=== PATIENT | male | born 1970 | race African-American/Black ===

== ENCOUNTER → 2021-10-25 16:30 | Outpatient (CLI) | payer OTHER, SELFPAY ==
[2021-10-25 16:51] LABS: Add Manual Diff / Slide Review NO; Basophils Absolute Auto 0 /uL (0-100); Basophils Percent Auto 1.2 % (0-2); Eosinophils Absolute Auto 100 /uL (0-450); Eosinophils Percent Auto 3.1 % (2-4); Hematocrit 43.5 % (41-53); Hemoglobin 15.4 g/dL (13.5-17.5); Lymphocytes Absolute Auto 1800 /uL (1100-4500); Lymphocytes Percent Auto 50.2 % (25-40); Mean Corpuscular HGB Conc 35.5 % (30-36); Mean Corpuscular Hemoglobin 32.3 PG (26-34); Mean Corpuscular Volume 91.2 fL (80-100); Monocytes Absolute Auto 300 /uL (0-900); Neutrophils Absolute Auto 1300 /uL (1500-7000); Neutrophils Percent Auto 36.5 % (50-75); Platelet Count 262 X10^3/uL (150-400); Red Blood Cell Count 4.77 X10^6/uL (4.5-5.9); White Blood Cell Count 3.5 X10^3/uL (4.5-11.0)
[2021-10-25 17:25] LABS: Alanine Aminotransferase 48 IU/L (<50); Albumin Globulin Ratio 1.4 (1.0-2.8); Alkaline Phosphatase 40 U/L (38-126); Aspartate Aminotransferase 44 IU/L (17-59); BUN Creatinine Ratio 11.8 (6-22); Bilirubin Total 0.9 mg/dL (0.2-1.3); Blood Urea Nitrogen 12 mg/dL (9-20); Calcium 9.4 mg/dL (8.4-10.2); Carbon Dioxide 30 mmol/L (22-32); Chloride 100 mmol/L (98-107); Cholesterol 189 mg/dL (140-199); Estimated Glomerular Filt Rate > 60.0 mL/min (>60); Globulin 3.5 g/dL (1.7-4.1); Glucose 87 mg/dL (70-100); HDL Cholesterol 41 mg/dL (40-60); HEMOLYSIS 17 (0-50); LDL Cholesterol Calculated 132 mg/dL (<100); Sodium 137 mmol/L (137-145); Total Protein 8.5 g/dL (6.3-8.2); Triglycerides 78 mg/dL (35-150)
[2021-10-25 17:51] LABS: TSH w/ Reflex to FT4 2.45 uIU/mL (0.47-4.68)
[2021-10-25 17:54] LABS: Prostate Specific Antigen Scrn 1.96 ng/mL (0.1-4.0)
== END ==
PROVIDERS: PCP Family Medicine; Referring Provider Family Medicine; Visit Provider Family Medicine
DX: H46.9 Unspecified optic neuritis (principal); M72.2 Plantar fascial fibromatosis; M77.30 Calcaneal spur, unspecified foot; Z12.11 Encounter for screening for malignant neoplasm of colon; Z12.5 Encounter for screening for malignant neoplasm of prostate; Z13.220 Encounter for screening for lipoid disorders
CPT/HCPCS: 36415; 80053; 80061; 84443; 85025; G0103

== ENCOUNTER → 2022-10-21 09:14 | Outpatient (CLI) | payer OTHER, SELFPAY ==
[2022-10-21 10:33] LABS: Hematocrit 43.9 % (41-53); Hemoglobin 15.4 g/dL (13.5-17.5); Mean Corpuscular Hemoglobin 31.9 PG (26-34); Mean Corpuscular Volume 91.1 fL (80-100); Platelet Count 300 X10^3/uL (150-400); Red Blood Cell Count 4.82 X10^6/uL (4.5-5.9); Red Cell Distribution Width 12.9 % (11.6-14.8); White Blood Cell Count 4.2 X10^3/uL (4.5-11.0)
[2022-10-21 11:12] LABS: HEMOLYSIS < 15 (0-50)
[2022-10-21 11:17] LABS: Alanine Aminotransferase 42 IU/L (<50); Albumin 4.6 g/dL (3.5-5.0); Albumin Globulin Ratio 1.4 (1.0-2.8); Alkaline Phosphatase 52 U/L (38-126); Aspartate Aminotransferase 44 IU/L (17-59); BUN Creatinine Ratio 11.2 (6-22); Bilirubin Total 0.6 mg/dL (0.2-1.3); Blood Urea Nitrogen 15 mg/dL (9-20); Calcium 9.3 mg/dL (8.4-10.2); Carbon Dioxide 27 mmol/L (22-32); Chloride 103 mmol/L (98-107); Cholesterol 162 mg/dL (140-199); Estimated Glomerular Filt Rate > 60 mL/min (>60); Globulin 3.3 g/dL (1.7-4.1); Glucose 92 mg/dL (70-100); HDL Cholesterol 38 mg/dL (40-60); LDL Cholesterol Calculated 115 mg/dL (<100); Potassium 4.2 mmol/L (3.4-5.1); Sodium 138 mmol/L (137-145); Total Protein 7.9 g/dL (6.3-8.2); Triglycerides 44 mg/dL (35-150)
[2022-10-21 11:49] LABS: TSH w/ Reflex to FT4 1.52 uIU/mL (0.47-4.68)
[2022-10-21 11:50] LABS: Prostate Specific Antigen 2.28 ng/mL (0.10-4.00)
== END ==
PROVIDERS: PCP Family Medicine; Referring Provider Registered Nurse Diabetes Educator; Visit Provider Registered Nurse Diabetes Educator
DX: E78.5 Hyperlipidemia, unspecified (principal); Z80.42 Family history of malignant neoplasm of prostate
CPT/HCPCS: 36415; 80053; 80061; 84153; 84443; 85027

== ENCOUNTER → 2022-11-29 11:06 | Outpatient (CLI) | payer OTHER, SELFPAY ==
--- NOTE | 2022-11-29 11:09 | DI.MRI.S_ITS ---
PROCEDURE: MR LUMBAR SPINE WO CON INDICATIONS: Chronic progressive LBP TECHNIQUE: Noncontrast sagittal T1 spin echo and T2 fast echo, sagittal STIR, and T2 fast spin echo through the lumbar spine. In cases with scoliosis, additional coronal T2 fast spin echo may be performed. COMPARISON: [facility] Outside Film, CR, XR LUMBAR SPINE 2 OR 3 VIEWS, 11/03/2020, 10:38. FINDINGS: Image quality: Excellent. Alignment and Curvature: 5 lumbar type vertebral bodies are present by plain film. 4 mm of retrolisthesis of L5 on S1. Bone Marrow: Marrow is of normal overall signal. No acute vertebral body compression fractures. Mild reactive signal within the endplates adjacent to the L5-S1 intervertebral disc. He and Spinal Cord: Conus medullaris terminates at the lower L1 a level. Visualized cord demonstrates normal signal and size. Paraspinous Soft Tissues: No paravertebral masses. T12-L1: Normal appearance. L1-L2: Normal appearance. L2-L3: Normal appearance. L3-L4: Mild disc desiccation and diffuse disc bulge. Mild facet and ligamentum flavum hypertrophy. Mild epidural lipomatosis. Mild canal stenosis. Moderate bilateral foraminal stenosis. L4-L5: Mild facet hypertrophy. No significant canal stenosis. Moderate bilateral foraminal stenosis. L5-S1: Moderate disc height loss and desiccation. Mild diffuse disc bulge. Mild bilateral facet hypertrophy. No significant canal stenosis. Moderate subarticular foraminal stenosis. IMPRESSION: 1. Multilevel degenerative disc and facet disease, as well as ligamentum flavum hypertrophy and epidural lipomatosis. 2. Mild multilevel canal stenoses. 3. Multilevel foraminal stenoses, worst at L3-L4, L4-L5, and L5-S1 where there is associated moderate foraminal stenosis. Dictated by: Marcella Love M.D. on 11/29/2022 at 12:19 Approved by: Marcella Love M.D. on 11/29/2022 at 12:22
== END ==
PROVIDERS: PCP Family Medicine; Referring Provider Physical Medicine & Rehabilitation; Visit Provider Physical Medicine & Rehabilitation
DX: M51.37 Other intervertebral disc degeneration, lumbosacral region (principal); M47.816 Spondylosis without myelopathy or radiculopathy, lumbar region; M48.061 Spinal stenosis, lumbar region without neurogenic claudication; M48.07 Spinal stenosis, lumbosacral region
CPT/HCPCS: 72148

== ENCOUNTER 2022-12-06 10:58 | Day surgery (SDC) | payer OTHER, SELFPAY ==
--- NOTE | 2022-12-06 | PATH_ITS ---
[facility] Accession Number: [id number] No. of containers..01 Tissue . 01 Material submitted: . colon - ASCENDING COLON POLYP . 01 Diagnosis: Ascending Colon Polyp, Biopsy: Colonic mucosa with no neoplasm identified, consistent with polypoid redundancy. MRV 12/10/2022 1320 Local . 01 Electronically signed: . Sallie Zapata MD, Pathologist NPI- [id number] . 01 Gross description: . ASCENDING COLON POLYP: Received in formalin is 1 fragment(s) of greco, soft tissue measuring 0.2 x 0.2 x 0.1 cm submitted entirely in 1 cassette(s) /CPE 12/07/2022 0916 Local . 01 Pathologist provided ICD-10: Z12.11 . 01 CPT . 311079 Specimen Comment: A courtesy copy of this report has been sent to [facility] Pathology Performed at: 01 [facility] [address] [place] [address], [place], [place] [id number] MD Geraldo Major MD Phone: [phone]
[2022-12-06 11:38] VITALS: BP 122/80; PULSE 68; RESP 21; TEMP 36.3; O2SAT 99; BMI 33.7
[2022-12-06] MEDS: LACTATED RINGERS 1,000 ML 42 ML IV (11:50)
--- NOTE | 2022-12-06 14:19 | PM.HP.1 ---
History of Present Illness History of Present Illness Date Patient Seen: 12/06/22 Time Patient Seen: 14:19 Chief complaint: Screening Colonoscopy Narrative: Mr. Antoine presents today for screening colonoscopies never had a colonoscope before. He has no family history of colon cancer and no concerning symptoms. He has no other questions [facility] Medical History Anxiety Bilateral plantar fasciitis Degenerative disc disease at L5-S1 level Dyslipidemia Facet arthropathy, lumbar Heel spur Optic neuritis Posttraumatic stress disorder Social History household members: spouse Smoking Status: Never smoker Meds Home Medications and Allergies Home Medications Medication Instructions Recorded Confirmed Type Parking Permit... #1 ea 10/25/21 10/23/22 Rx celecoxib 200 mg capsule (Celebrex) 200 mg PO DAILY #30 caps 10/17/22 12/06/22 Rx gabapentin 300 mg capsule 300 mg PO BID PRN pain (scale 10/17/22 12/06/22 History score 4-6) sodium sul 1.479 gram-potas ch See Rx Instructions PO PER PKG DIR 10/18/22 12/06/22 Rx 0.188 gram-magnes sul 0.225 gram #24 tabs tablet (Sutab) Allergies Allergy/AdvReac Type Severity Reaction Status Date / Time No Known Drug Allergies Allergy Unverified 10/23/22 11:30 Exam Vital Signs (past 8 hours): - 12/06/22 11:38 Temperature 97.4 F L Pulse Rate 68 Respiratory Rate 21 Blood Pressure 122/80 Pulse Oximetry 99 Oxygen Delivery Method Room Air Oxygen Delivery Method Room Air Const General: cooperative, healthy appearing and comfortable Nutritional Appearance: well nourished (Strong, healthy) Eyes General: appearance normal, both eyes and all related structures Resp Effort & Inspection: normal respiratory effort and able to speak in complete sentences GI Palpation: soft and No tender Extrem General: normal to inspection Assessment & Plan Assessment and plan (1) Colon cancer screening: Status: Acute Assessment & Plan narrative: Presents today for screening colonoscopy I discussed the risks benefits and alternatives including but not limited to perforation of the colon and an incomplete exam he fully understands these risks and would like to proceed.
[2022-12-06 15:14] VITALS: BP 100/64; PULSE 75; RESP 16; TEMP 36.5; O2SAT 96
[2022-12-06 15:16] VITALS: BP 97/59; PULSE 69; RESP 10; O2SAT 96
[2022-12-06 15:21] VITALS: BP 100/62; PULSE 63; RESP 11; O2SAT 96
--- NOTE | 2022-12-06 15:23 | PM.OP.COLON ---
Operative Date/Time/Diagnoses Date of procedure: 12/06/22 Time of procedure: 15:23 Pre-op diagnosis: Colon cancer screening Post-op diagnosis: same Procedure & Clinicians Study performed: colonoscopy and biopsy Same procedure as scheduled: Yes Indications: screening Surgeon: Angeline Sosa Procedure Notes Procedure in detail: Patient was taken to the endoscopy suite and placed in a left lateral decubitus position. A time-out was performed anesthesiologist induced and maintained conscious sedation throughout the case. Digital rectal exam was performed some small external hemorrhoids were noted and there were no masses or strictures. The colonoscope was introduced into the anal canal and advanced through to the cecum. A photograph was obtained of the appendiceal orifice. The bowel prep was excellent [place] bowel prep score of 3. The scope was withdrawn for 15 minutes. One small ascending colon polyp was seen and removed with the biopsy forceps. Additionally there were few scattered diverticula in the sigmoid colon. Photographs were obtained. The scope was retroflexed and the internal hemorrhoid piles were unremarkable photograph was obtained. The patient tolerated the procedure well and went in good condition the postoperative care unit Post-procedure Plan for aftercare: 7-10 year follow-up depending on pathology of the 1 polyp seen.
[2022-12-06 15:26] VITALS: BP 120/74; PULSE 72; RESP 14; TEMP 36.4; O2SAT 98
[2022-12-06 15:29] VITALS: BP 121/65; PULSE 60; RESP 12; TEMP 36.3; O2SAT 96
== END 2022-12-06 15:55 | disposition home or self-care (01) ==
PROVIDERS: PCP Family Medicine; Referring Provider Surgery; Visit Provider Surgery
PROC: 0DJD8ZZ Inspection of Lower Intestinal Tract, Via Natural or Artificial Opening Endoscopic (ICD-10-PCS; CPT 45378; principal; 2022-12-06 12:15)
DX: Z12.11 Encounter for screening for malignant neoplasm of colon (principal); K57.30 Diverticulosis of large intestine without perforation or abscess without bleeding; K64.4 Residual hemorrhoidal skin tags; K63.5 Polyp of colon
CPT/HCPCS: 45380; J2704; J3010

== ENCOUNTER 2023-01-14 07:53 | Outpatient (CLI) | payer OTHER, SELFPAY ==
[2023-01-14] VITALS (9 sets, daily range): BP systolic 112–144; BP diastolic 54–93; PULSE 55–70; RESP 12–19; TEMP 36.4; O2SAT 2–100
--- NOTE | 2023-01-14 07:54 | DI.RAD.S_ITS ---
PROCEDURE: PAIN L INTERLAMINAR/CAUDAL INJ INDICATIONS: SPONDYLOSIS COMPARISON: None. FINDINGS: Fluoroscopic spot filming was performed to verify placement of spinal needles at the L5-S1 level(s), as labeled on the films. Appropriate location(s) of the needle tip(s) was confirmed by injection of iodinated contrast. IMPRESSION: Fluoro guidance was provided intraoperatively for L5-S1 translaminar epidural steroid injection performed by the ordering physician. Dictated by: Héctor Herrera M.D. on 01/14/2023 at 10:49 Approved by: Héctor Herrera M.D. on 01/14/2023 at 10:52
[2023-01-14] MEDS: MIDAZOLAM 2 MG/2 ML VIAL IV (09:07)
[2023-01-14] MEDS: IOPAMIDOL 15 ML VIAL 3 ML INJ (09:11)
[2023-01-14] MEDS: DEXAMETHASONE 10 MG/ML VIAL 20 MG INJ (09:11)
[2023-01-14] MEDS: BUPIVACAINE 0.25% (PF) VIAL 2 ML INJ (09:11)
[2023-01-14] MEDS: methylPREDNISolone acetate 80 MG/ML VIAL INJ (09:12)
--- NOTE | 2023-01-14 09:26 | P.PCN_ITS ---
Date/Time/Diagnoses Date of procedure: 01/14/23 Time of procedure: 09:26 Pre-procedure diagnosis: 1. HNP WITH RADICULAR FEATURES, 2. MULTILEVEL CENTRAL STENOSIS, Post-procedure diagnosis: same Procedure Notes Procedure: 1. FLUOROSCOPICALLY GUIDED CONTRAST CONTROLLED INTERLAMINAR EPIDURAL STEROID INJECTION - L5/S1 Indications: Power is referred by Dr. Burr for treatment of Bilateral Foraminal Stenosis L>R LE symptoms. Physician: Roderick Michelle Total Fluoroscopy time (seconds): 7 Total sedation minutes: 10 Complications: none Procedure in detail & Post-procedure care: FINDINGS Multilevel Central Spinal Stenosis with Nerve Root Compression DESCRIPTION OF PROCEDURE Fluoroscopically guided, contrast-controlled L5/S1 translaminar epidural steroid injection. Following review of allergy and review of potential side effects and complications, including, but not necessarily limited to, infection, allergic reaction, local tissue breakdown, temporary as well as permanent nerve injury, paralysis, stroke and possible , the patient indicated that the patient understood and agreed to proceed. An informed consent document was signed by the patient, witnessed by a nurse, and placed in the patient's chart. Additionally, other treatment options including modalities, medications, and physical therapy were reviewed with the patient. After review of previous anaesthesic history and IV conscious sedation the patient was deemed safe to proceed with today?s procedure with IV conscious sedation as ASA class II designation. Safety time-out was performed to confirm p atient ID, procedure to be performed and site of procedure. IV sedation was accomplished with a combination of 2mg of Versed administered by the RN after DO order, titrated to patient comfort during the course of the procedure while the patient remained responsive to all verbal commands. In the prone position, following sterile prep and drape of the lumbar region, the L5/S1 translaminar space was identified fluoroscopically. The skin was anesthetized via a 25-gauge, 1.5-inch needle with 1% lidocaine solution. At this point, a 22-gauge short bevel spinal needle was atraumatically introduced and advanced under fluoroscopic guidance into the region of the L5/S1 translaminar space. Depth was confirmed on lateral view. Radiological data, including multiple fluoroscopic views of the lumbar spine, reveal a spinal needle at the L5/S1 translaminar space. Lateral views then show placement of the needle in the epidural space. Subsequent views show contrast material flowing superiorly and inferiorly in the epidural space. No vascular or intrathecal uptake is observed. At this point, using loss of resistance technique with saline and air, the epidural space was entered. This was confirmed following negative aspiration with injection of approximately 1.5cc of Isovue 200, showing excellent epidural flow without vascular or intrathecal uptake. At this point, 1 cc of 1% lidocaine solution combined with 3cc or 20mg of dexamethasone and 6mg of betamethasone was injected without incident. The patent tolerated the procedure without signs of symptoms of complications prior to transfer to the recovery area for further monitoring. The patient was then transferred to the recovery area where they were observed for an appropriate period of time after the injection. The patient reported a VAS score of 10 prior to the procedure and a post-procedure VAS of 1. POST OP INSTRUCTIONS The patient was provided a Pain Log to continue to record their response to the target-specific procedure prior to follow-up visit with their referring physician. Additionally, specific post-injection care instructions and a contact number to our office were provided if concerns arise regarding possible complications associated with the procedure are suspected.
--- NOTE | 2023-01-14 10:12 | PC.NURSE ---
0954 patient stood at chair was able to take a few steps in place, states leg feels pretty good, pain is better when standing, states its more triggered when sitting. 1006- patient stood and took steps without difficulty, reports he feels safe to d/c home. Educated on being mindful of left leg for the next 24 hours and to be careful when walking. Patient aware and agrees. Dr Michelle saw patient prior to d/c.
== END 2023-01-14 10:10 | disposition home or self-care (01) ==
LOC: RAD 07:54
PROVIDERS: PCP Family Medicine; Referring Provider Physical Medicine & Rehabilitation; Visit Provider Physical Medicine & Rehabilitation
DX: M51.37 Other intervertebral disc degeneration, lumbosacral region (principal); M48.07 Spinal stenosis, lumbosacral region; M54.17 Radiculopathy, lumbosacral region
CPT/HCPCS: 62323; 99152; J1040; J1100; J2250; J3490

== ENCOUNTER 2023-04-15 10:18 | Outpatient (CLI) | payer OTHER, SELFPAY ==
[2023-04-15] VITALS (10 sets, daily range): BP systolic 112–127; BP diastolic 55–83; PULSE 62–76; RESP 15–20; TEMP 36.6; O2SAT 99–100
--- NOTE | 2023-04-15 10:19 | DI.RAD.S_ITS ---
PROCEDURE: PAIN L/S FACET INJ/BLK 1ST JOHNSON COMPARISON: [facility], XA, PAIN L INTERLAMINAR/CAUDAL INJ, 01/14/2023, 9:11. INDICATIONS: SPONDYLOSIS FINDINGS: Fluoroscopic spot filming was performed to verify placement of spinal needles on both sides at the L4, L5, and S1 levels, as labeled on the films. IMPRESSION: Images during rhizotomy within normal limits. Dictated by: Luis Daniel Sullivan M.D. on 04/15/2023 at 12:23 Approved by: Luis Daniel Sullivan M.D. on 04/15/2023 at 12:24
[2023-04-15] MEDS: MIDAZOLAM 2 MG/2 ML VIAL 4 MG IV (11:21)
[2023-04-15] MEDS: IOPAMIDOL 15 ML VIAL 3 ML INJ (11:23)
[2023-04-15] MEDS: BUPIVACAINE 0.5% (PF) 10 ML VIAL 5 ML INJ (11:23)
[2023-04-15] MEDS: LIDOCAINE 1% 20 ML 5 ML INJ (11:23)
--- NOTE | 2023-04-15 11:42 | PM.PROC.IR.1 ---
Date/Time/Diagnoses Date of procedure: 04/15/23 Time of procedure: 11:42 Pre-procedure diagnosis: 1. FACET ARTHROPATHY Post-procedure diagnosis: same Procedure Notes Procedure: 1. BILATERAL- L4, L5 and S1 DIAGNOSTIC MB BLOCKS with LA Anesthetic Indications: Power is referred by Dr. Burr for treatment of Bilateral Axial LBP. Physician: Roderick Michelle Total Fluoroscopy time (seconds): 16 Total sedation minutes: 18 Complications: none Procedure in detail & Post-procedure care: DESCRIPTION OF PROCEDURE Fluoroscopically guided, contrast-controlled bilateral L4, L5 and S1 medial branch blocks with 0.5cc of 0.5% Marcaine. Following review of allergy and review of potential side effects and complications, including, but not necessarily limited to, infection, allergic reaction, local tissue breakdown, nerve injury, paralysis, stroke and possible , the patient indicated that the patient understood and agreed to proceed. An informed consent document was signed by the patient, witnessed by a nurse, and placed in the patient's chart. After review of previous anaesthesic history and IV conscious sedation the patient was deemed safe to proceed with today's procedure with IV conscious sedation as ASA class II designation. Safety time-out was performed to confirm patient ID, procedure to be performed and site of procedure. IV sedation was accomplished with a combination of 4mg of Versed was administered by the RN after DO order, titrated to patient comfort during the course of the procedure while the patient remained responsive to all verbal commands In the prone position, following sterile prep and drape of the lumbar region, the right L4, L5 and S1 anatomical location of the medial branch of the dorsal ramus was identified fluoroscopically. Subsequently an anesthetic skin wheal using 1% lidocaine solution was initiated at each of the anatomical spots. Subsequently then a 22-gauge 3.5-inch spinal needle was atraumatically introduced and advanced under fluoroscopic guidance at each of the corresponding sites at the right L4, L5 and S1 MB. After negative aspiration, 0.2cc of Isovue 200 was injected, confirming placement without vascular or intrathecal uptake. Subsequently then 0.5cc of 0.5% Marcaine solution was injected at each of the corresponding sites at the right L4, L5 and S1 medial branch locations. The identical procedure was replicated on the left. The patient tolerated the procedure well without signs or symptoms of complications prior to transfer to the recovery area continued monitoring without incident. Post-procedure, the patient was monitored initiating provocative activities to measure the amount of relief from block of the facetogenic pain. The patient reported a VAS of 7 prior to the procedure and a post-procedure VAS of 1. It has been a pleasure to assist in the diagnostic and therapeutic care of your patient. POST OP INSTRUCTIONS The patient was provided with a Pain Log to complete over the next several hours and subsequent days prior to the patient's follow up with the ordering physician. If the patient has production leader relief to the solution applied, then they may be a candidate for medial branch rhizotomy. The patient is aware, was provided, once again, with a Pain Log and will follow up with the referring physician for review and clinical correlation.
== END 2023-04-15 12:00 | disposition home or self-care (01) ==
LOC: RAD 10:18
PROVIDERS: PCP Family Medicine; Referring Provider Physical Medicine & Rehabilitation; Visit Provider Physical Medicine & Rehabilitation
DX: M47.816 Spondylosis without myelopathy or radiculopathy, lumbar region (principal); M47.817 Spondylosis without myelopathy or radiculopathy, lumbosacral region
CPT/HCPCS: 64493; 64494; 99152; J2250

== ENCOUNTER → 2024-02-06 09:50 | Outpatient (CLI) | payer OTHER, SELFPAY ==
[2024-02-06 11:36] LABS: Add Manual Diff / Slide Review NO; Basophils Absolute Auto 100 /uL (0-100); Basophils Percent Auto 1.4 % (0-2); Eosinophils Absolute Auto 100 /uL (0-450); Eosinophils Percent Auto 1.7 % (2-4); Hematocrit 43.8 % (41-53); Hemoglobin 15.5 g/dL (13.5-17.5); Lymphocytes Absolute Auto 2000 /uL (1100-4500); Mean Corpuscular HGB Conc 35.3 % (30-36); Mean Corpuscular Hemoglobin 32.6 PG (26-34); Mean Corpuscular Volume 92.4 fL (80-100); Monocytes Absolute Auto 400 /uL (0-900); Monocytes Percent Auto 9.8 % (3-14); Neutrophils Absolute Auto 1300 /uL (1500-7000); Neutrophils Percent Auto 34.1 % (50-75); Platelet Count 270 X10^3/uL (150-400); Red Blood Cell Count 4.74 X10^6/uL (4.5-5.9); White Blood Cell Count 3.8 X10^3/uL (4.5-11.0)
[2024-02-06 11:50] LABS: Alanine Aminotransferase 34 IU/L (<50); Albumin 4.3 g/dL (3.5-5.0); Albumin Globulin Ratio 1.5 (1.0-2.8); Alkaline Phosphatase 50 U/L (38-126); Aspartate Aminotransferase 35 IU/L (17-59); BUN Creatinine Ratio 10.9 (6-22); Bilirubin Total 0.8 mg/dL (0.2-1.3); Blood Urea Nitrogen 15 mg/dL (9-20); Calcium 9.4 mg/dL (8.4-10.2); Carbon Dioxide 30 mmol/L (22-32); Chloride 103 mmol/L (98-107); Cholesterol 134 mg/dL (140-199); Estimated Glomerular Filt Rate > 60 mL/min (>60); Globulin 2.9 g/dL (1.7-4.1); Glucose 93 mg/dL (70-100); HDL Cholesterol 41 mg/dL (40-60); HEMOLYSIS < 15 (0-50); LDL Cholesterol Calculated 84 mg/dL (<100); Potassium 4.9 mmol/L (3.4-5.1); Sodium 138 mmol/L (137-145); Total Protein 7.2 g/dL (6.3-8.2); Triglycerides 43 mg/dL (35-150)
[2024-02-06 12:20] LABS: Prostate Specific Antigen Scrn 2.37 ng/mL (0.1-4.0)
[2024-02-06 12:22] LABS: TSH w/ Reflex to FT4 1.48 uIU/mL (0.47-4.68)
[2024-02-06 12:42] LABS: Microalbumin Urine Random < 0.6 mg/dL (0-1.6)
[2024-02-07 08:18] LABS: Apolipoprotein B 68 mg/dL (<90)
== END ==
PROVIDERS: PCP Family Medicine; Referring Provider Family Medicine; Visit Provider Family Medicine
DX: Z12.11 Encounter for screening for malignant neoplasm of colon (principal); Z13.220 Encounter for screening for lipoid disorders; Z12.5 Encounter for screening for malignant neoplasm of prostate; F41.9 Anxiety disorder, unspecified; E78.5 Hyperlipidemia, unspecified; M54.40 Lumbago with sciatica, unspecified side; G89.29 Other chronic pain
CPT/HCPCS: 36415; 80053; 80061; 82043; 82172; 82570; 84443; 85025; G0103

== ENCOUNTER 2024-02-19 09:52 | Outpatient (CLI) | payer OTHER, SELFPAY ==
[2024-02-19] VITALS (19 sets, daily range): BP systolic 93–153; BP diastolic 51–94; PULSE 60–73; RESP 9–18; TEMP 36.4; O2SAT 98–100
--- NOTE | 2024-02-19 10:45 | DI.RAD.S_ITS ---
PROCEDURE: PAIN L/S FACET INJ/BLK 1[facility] INDICATIONS: Bilateral L4-L5 and S1 medial branch blocks SA COMPARISON: [facility], , PAIN L/S FACET INJ/BLK 1[facility], 04/15/2023, 11:14. FINDINGS: Fluoroscopic spot filming was performed to verify placement of spinal needles at the bilateral L4, L5 and S1 level(s), as labeled on the films. Appropriate location(s) of the needle tip(s) was confirmed by injection of iodinated contrast. IMPRESSION: Fluoroscopic guidance utilized for bilateral medial branch blocks. Dictated by: Kareem Harden M.D. on 02/19/2024 at 14:00 Approved by: Kareem Harden M.D. on 02/19/2024 at 14:01
[2024-02-19] MEDS: MIDAZOLAM 2 MG/2 ML VIAL IV (11:17)
[2024-02-19] MEDS: iopamidoL 15 ML VIAL 3 ML INJ (11:20)
[2024-02-19] MEDS: LIDOCAINE 2% INJ MDV 20ML 5 ML INJ (11:20)
[2024-02-19] MEDS: LIDOCAINE 1% 20 ML 5 ML INJ (11:21)
[2024-02-19] MEDS: SODIUM CHLORIDE 0.9% 500 ML 1000 ML IV (11:30)
--- NOTE | 2024-02-19 11:43 | P.PCN_ITS ---
Date/Time/Diagnoses Date of procedure: 02/19/24 Time of procedure: 11:43 Pre-procedure diagnosis: 1. FACET ARTHROPATHY Post-procedure diagnosis: same Procedure Notes Procedure: 1. BILATERAL- L4, L5 and S1 DIAGNOSTIC MB BLOCKS with SA Anesthetic Indications: Power is referred by Dr. Burr for treatment of Bilateral Axial LBP. Physician: Roderick Michelle Total Fluoroscopy time (seconds): 12 Total sedation minutes: 20 Complications: none Procedure in detail & Post-procedure care: DESCRIPTION OF PROCEDURE Fluoroscopically guided, contrast-controlled bilateral L4, L5 and S1 medial branch blocks with 0.5cc of 2% Lidocaine. Following review of allergy and review of potential side effects and complications, including, but not necessarily limited to, infection, allergic reaction, local tissue breakdown, nerve injury, paralysis, stroke and possible , the patient indicated that the patient understood and agreed to proceed. An informed consent document was signed by the patient, witnessed by a nurse, and placed in the patient's chart. After review of previous anaesthesic history and IV conscious sedation the patient was deemed safe to proceed with today's procedure with IV conscious sedation as ASA class II designation. Safety time-out was performed to confirm patient ID, procedure to be performed and site of procedure. IV sedation was accomplished with a combination of 2mg of Versed was administered by the RN after DO order, titrated to patient comfort during the course of the procedure while the patient remained responsive to all verbal commands In the prone position, following sterile prep and drape of the lumbar region, the right L4, L5 and S1 anatomical location of the medial branch of the dorsal ramus was identified fluoroscopically. Subsequently an anesthetic skin wheal u sing 1% lidocaine solution was initiated at each of the anatomical spots. Subsequently then a 22-gauge 3.5-inch spinal needle was atraumatically introduced and advanced under fluoroscopic guidance at each of the corresponding sites at the right L4, L5 and S1 MB. After negative aspiration, 0.2cc of Isovue 200 was injected, confirming placement without vascular or intrathecal uptake. Subsequently then 0.5cc of 2% Lidocaine solution was injected at each of the corresponding sites at the right L4, L5 and S1 medial branch locations. The identical procedure was replicated on the left. The patient tolerated the procedure well without signs or symptoms of complications prior to transfer to the recovery area continued monitoring without incident. Post-procedure, the patient was monitored initiating provocative activities to measure the amount of relief from block of the facetogenic pain. The patient reported a VAS of 10 prior to the procedure and a post-procedure VAS of 2. It has been a pleasure to assist in the diagnostic and therapeutic care of your patient. POST OP INSTRUCTIONS The patient was provided with a Pain Log to complete over the next several hours and subsequent days prior to the patient's follow up with the ordering physician. If the patient has melt helper relief to the solution applied, then they may be a candidate for medial branch rhizotomy. The patient is aware, was provided, once again, with a Pain Log and will follow up with the referring physician for review and clinical correlation
--- NOTE | 2024-02-19 12:14 | PC.NURSE ---
Patient stated that in the post-procedure area he noticed that his eye were fluttering. He was also experiencing numbness to the back of his neck, bilateral anterior thighs, toes and feet Left side worse then right. He also stated his Left shoulder was also numb. Patient also complained of his lower gums and tongue felt numb mostly on the left side. Patient denied any chest pain, SOB, Headache, and no generalized pain in his body. Patient is able to move his extremities equally bilaterally and he is also able to smile was equal on both sides. Patient is also able to talk without difficulty. Dr. Michelle in a procedure, but asked by this nurse to come down to assess Mr. Antoine when he is finished with current procedure.
--- NOTE | 2024-02-19 13:03 | PC.NURSE ---
Late entry:low BP during procedure Patient with low blood pressure readings during injection procedure. Patient awake and talking with this RN and Dr. Michelle during procedure. No symptoms noted by this RN, no verbal complaint of symptoms by patient while on procedure table. NS bolus of 500mls started by this RN per verbal order from Dr. Michelle. Care remains ongoing and patient taken to post procedure recovery. Report given to Rosie Matias RN
--- NOTE | 2024-02-19 13:31 | PC.NURSE ---
Dr. Michelle assessed patient. Dr. Michelle gave verbal order that patient was OK to DC home.
--- NOTE | 2024-02-19 13:39 | PC.NURSE ---
addendum to nurse note at 1331 Dr. Michelle's assement of patient and verbal order to DC patient home was at 1240.
--- NOTE | 2024-02-19 16:55 | PC.NURSE ---
Called left voice message to see how pt was feeling this afternoon after procedure. Encouraged to call clinic if has any questions or concerns.
== END 2024-02-19 12:45 | disposition home or self-care (01) ==
LOC: RAD 09:52
PROVIDERS: PCP Family Medicine; Referring Provider Physical Medicine & Rehabilitation; Visit Provider Physical Medicine & Rehabilitation
DX: M47.816 Spondylosis without myelopathy or radiculopathy, lumbar region (principal); M47.817 Spondylosis without myelopathy or radiculopathy, lumbosacral region
CPT/HCPCS: 64493; 64494; 99152; J2250

== ENCOUNTER 2024-07-20 07:16 | Outpatient (CLI) | payer OTHER, SELFPAY ==
[2024-07-20] VITALS (32 sets, daily range): BP systolic 117–165; BP diastolic 61–96; PULSE 57–77; RESP 8–20; TEMP 36.9; O2SAT 96–100
--- NOTE | 2024-07-20 07:19 | DI.RAD.S_ITS ---
PROCEDURE: PAIN L/S FACET INJ/BLK 1[facility] INDICATIONS: Bilateral L4-L5 and S1 medial branch RFA COMPARISON: [facility], , PAIN L/S FACET INJ/BLK 1[facility], 02/19/2024, 11:20. FINDINGS: Fluoroscopic spot filming was performed to verify placement of spinal needles at the L4, L5, S1 level(s), as labeled on the films. Appropriate location(s) of the needle tip(s) was confirmed by injection of iodinated contrast. IMPRESSION: L4, L5, and S1 RFA. Please see operative note for full details. Dictated by: Carlos West M.D. on 07/20/2024 at 20:29 Approved by: Carlos West M.D. on 07/20/2024 at 20:30
[2024-07-20] MEDS: MIDAZOLAM 2 MG/2 ML VIAL IV (08:02)
[2024-07-20] MEDS: MIDAZOLAM 2 MG/2 ML VIAL 1 MG IV ×2 (08:08→08:15)
[2024-07-20] MEDS: fentaNYL 100 MCG/2 ML INJ 25 MCG IV ×3 (08:22→08:38)
[2024-07-20] MEDS: BUPIVACAINE 0.5% (PF) 10 ML VIAL 5 ML INJ (08:28)
[2024-07-20] MEDS: LIDOCAINE 1% 20 ML 5 ML INJ (08:29)
[2024-07-20] MEDS: SODIUM CHLORIDE 0.9% 500 ML 1000 ML IV (08:55)
--- NOTE | 2024-07-20 09:37 | P.PCN_ITS ---
Date/Time/Diagnoses Date of procedure: 07/20/24 Time of procedure: 09:37 Pre-procedure diagnosis: 1. RECALCITRANT FACET ARTHROPATHY Post-procedure diagnosis: same Procedure Notes Procedure: 1. BILATERAL L4 AND L5 MEDIAL BRANCH RADIOFREQUENCY NEUROTOMY AND S1 DORSAL RAMUS BRANCH RADIOFREQUENCY NEUROTOMY Indications: Power is referred by Dr. Burr for treatment of facet arthropathy. Physician: Roderick Michelle Total Fluoroscopy time (seconds): 25 Total sedation minutes: 46 Complications: none Procedure in detail & Post-procedure care: DESCRIPTION OF PROCEDURE Bilateral L4 and L5 medial branch radiofrequency neurotomy and bilateral S1 dorsal ramus radiofrequency neurotomy under fluoroscopy with conscious sedation. The patient is well known to this clinic having undergone previous facet injections with good but temporary relief. The patient has experienced appropriate, concordant relief with previous facet and median branch blocks but the patient's pain has been recalcitrant to further conservative measures. Therefore, based upon the patient's relief and persistent symptoms, the patient is considered an appropriate candidate for facet rhizotomy. All of the patient's questions regarding the risks versus benefits of the procedure, including, but not limited to, bleeding, infection, temporary as well as lasting nerve injury, paralysis, stroke, and , as well treatment alternatives were answered to satisfaction. After obtaining informed consent, denial of pertinent drug allergies, as well as being made aware of the potential risks of bleeding, infection, spinal cord trauma, paralysis, temporary and permanent nerve damage, seizure, stroke, and possible , the patient was brought to the fluoroscopy suite and positioned prone on the fluoroscopy table. The lumbar region was prepped in usual sterile fashion and covered with a fenestrated drape in the usual sterile fashion. Appropriate monitors applied including pulse oximeter, pulse, and blood pressure for regular monitoring throughout the procedure. After review of previous anaesthesic history and IV conscious sedation the patient was deemed safe to proceed with today's procedure with IV conscious sedation as ASA class II designation. Safety time-out was performed to confirm patient ID, procedure to be performed and site of procedure. IV sedation was accomplished with a combination of 4mg of Versed and 75mcg of Fentanyl administered by the RN after DO order, titrated to patient comfort during the course of the procedure while the patient remained responsive to all verbal commands. After local infiltration using 1% lidocaine, under fluoroscopic guidance, a 10- cm RF insulated needle with a 10-mm active tip was positioned parallel to the junction of the right sacral ala and the superior articulating process where the S1 dorsal ramus resides. Needle placement was confirmed with motor stimulation of .5v on the right which produced local stimulation without radicular component. The stimulation was then increased to 2v with, once again, only local multifidus stimulation without radicular component. The needle was then removed and the identical procedure was performed along the length of the right L5 medial branch with motor stimulation at .7v on the right. The identical procedure was once again performed along the length of the right L4 medial branch with motor stimulation of .5v on the right. The medial branches were then anesthetised with 0.5% Marcaine. This was then followed by two discreet lesions performed at 80 degrees Celsius for 90 seconds each. The identical procedure was repeated on the left. The patient tolerated the procedure well without signs or symptoms of complications prior to transfer to the recovery area continued monitoring without incident. The patient was then transferred to the recovery area where they were observed for an appropriate period of time after the injection. The patient reported a VAS score of 9 prior to the procedure and a post-procedure VAS of 0. POST OP INSTRUCTIONS The patient was provided a Pain Log to continue to record the patient's response to the target-specific procedure prior to the patient's follow-up visit with the referring physician. Additionally, specific post-injection care instructions and a contact number to our office were provided if concerns arise regarding possible complications associated with the procedure are suspected.
== END 2024-07-20 10:55 | disposition home or self-care (01) ==
LOC: RAD 07:18
PROVIDERS: PCP Family Medicine; Referring Provider Physical Medicine & Rehabilitation; Visit Provider Physical Medicine & Rehabilitation
DX: M47.816 Spondylosis without myelopathy or radiculopathy, lumbar region (principal); M47.817 Spondylosis without myelopathy or radiculopathy, lumbosacral region
CPT/HCPCS: 64493; 64494; 99152; 99153; J2250; J3010

== ENCOUNTER → 2024-10-06 08:01 | Outpatient (CLI) | payer OTHER, SELFPAY ==
--- NOTE | 2024-10-06 08:02 | DI.RAD.S_ITS ---
PROCEDURE: XR LUMBAR SPINE MIN 4V INDICATIONS: BACK PAIN TECHNIQUE: 5 views of the lumbar spine were acquired, including bilateral oblique views. COMPARISON: None. FINDINGS: Bones: 5 nonrib-bearing vertebrae are present. There is normal bony alignment. No vertebral body compression fractures. Mild degenerative endplate changes are noted at L4-5 and L5-S1 levels. No suspicious bony lesions. Soft tissues: Overlying bowel gas pattern is normal. No suspicious soft tissue calcifications. Oblique images: No pars defects. Mild bilateral bony foraminal stenosis at L4-5 and L5-S1 levels are seen. IMPRESSION: 1. No acute lumbar spine compression fracture or spondylolisthesis. 2. Mild degenerative disc disease in lower lumbar spine with suggestion of bilateral bony foraminal stenosis at L4-5 and L5-S1 levels. No pars defects are seen. Dictated by: Héctor Herrera M.D. on 10/06/2024 at 9:01 Approved by: Héctor Herrera M.D. on 10/06/2024 at 9:02
== END ==
PROVIDERS: PCP Family Medicine; Referring Provider Physical Medicine & Rehabilitation; Visit Provider Physical Medicine & Rehabilitation
DX: M47.816 Spondylosis without myelopathy or radiculopathy, lumbar region (principal); M51.369 Other intervertebral disc degeneration, lumbar region without mention of lumbar back pain or lower extremity pain; M51.379 Other intervertebral disc degeneration, lumbosacral region without mention of lumbar back pain or lower extremity pain
CPT/HCPCS: 72110

== ENCOUNTER 2024-10-11 12:03 | Emergency (ER) | payer OTHER, SELFPAY ==
[2024-10-11 12:23] VITALS: BP 197/90; PULSE 97; RESP 18; TEMP 36.4; O2SAT 96; BMI 34.4
--- NOTE | 2024-10-11 12:34 | EKG_ITS ---
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
[2024-10-11 12:43] LABS: Add Manual Diff / Slide Review NO; Basophils Absolute Auto 100 /uL (0-100); Basophils Percent Auto 2.2 % (0-2); Eosinophils Absolute Auto 100 /uL (0-450); Eosinophils Percent Auto 2.3 % (2-4); Hematocrit 44.6 % (41-53); Hemoglobin 15.5 g/dL (13.5-17.5); Lymphocytes Absolute Auto 1600 /uL (1100-4500); Lymphocytes Percent Auto 34.3 % (25-40); Mean Corpuscular HGB Conc 34.7 % (30-36); Mean Corpuscular Hemoglobin 32.2 PG (26-34); Mean Corpuscular Volume 92.9 fL (80-100); Monocytes Absolute Auto 700 /uL (0-900); Monocytes Percent Auto 15.3 % (3-14); Neutrophils Absolute Auto 2100 /uL (1500-7000); Neutrophils Percent Auto 45.9 % (50-75); Platelet Count 285 X10^3/uL (150-400); White Blood Cell Count 4.6 X10^3/uL (4.5-11.0)
[2024-10-11 12:58] LABS: Alanine Aminotransferase 66 IU/L (<50); Albumin 4.8 g/dL (3.5-5.0); Albumin Globulin Ratio 1.4 (1.0-2.8); Alkaline Phosphatase 50 U/L (38-126); Aspartate Aminotransferase 90 IU/L (17-59); BUN Creatinine Ratio 13.5 (6-22); Bilirubin Total 0.6 mg/dL (0.2-1.3); Blood Urea Nitrogen 17 mg/dL (9-20); Calcium 9.5 mg/dL (8.4-10.2); Carbon Dioxide 25 mmol/L (22-32); Chloride 102 mmol/L (98-107); Estimated Glomerular Filt Rate > 60 mL/min (>60); Globulin 3.4 g/dL (1.7-4.1); Glucose 90 mg/dL (70-100); HEMOLYSIS 15 (0-50); Lipase 187 U/L (23-300); Potassium 4.5 mmol/L (3.4-5.1); Sodium 138 mmol/L (137-145); Total Protein 8.2 g/dL (6.3-8.2)
--- NOTE | 2024-10-11 13:46 | DI.CT.S_ITS ---
PROCEDURE: CT ABDOMEN PELVIS W CON INDICATIONS: RLQ pain TECHNIQUE: After the administration of intravenous contrast, axial sections acquired from the lung bases to the pubic symphysis. Coronal and sagittal reformats were performed. For radiation dose reduction, the following was used: automated exposure control, adjustment of mA and/or kV according to patient size. COMPARISON: None. FINDINGS: Image quality: Diagnostic. Lower Chest: No significant findings. ABDOMEN: Liver: No solid mass. Gallbladder: No radiopaque gallstones or wall thickening. Biliary ducts: No biliary dilation. Pancreas: No ductal dilation. Spleen: Size is within normal limits. Adrenal Glands: No adrenal nodules. Kidneys and Ureters: No hydronephrosis. No solid mass. No complex renal cystic lesion which requires follow up. Stomach and Bowel: Normal colonic caliber, without significant wall thickening. Appendix not identified. No secondary signs of acute appendicitis. Peritoneum: No abnormal intraperitoneal fluid. No free air. Ventral Wall: No significant ventral hernia. Abdominal Nodes: No retroperitoneal or mesenteric adenopathy by size criteria. Vessels: Aorta and inferior vena cava are normal in size. PELVIS: Pelvic Organs: Enlarged prostate. Bladder: Bladder wall thickening likely represents an element of bladder outlet obstruction. Pelvic Nodes: Shotty bilateral inguinal lymph nodes, likely reactive. Miscellaneous: No inguinal hernias are seen. Bones: No aggressive osseous abnormality. IMPRESSION: 1. Appendix not visualized. No secondary signs of acute appendicitis. 2. No acute abdominal process identified. 3. Prostatomegaly with a possible degree of bladder outlet obstruction. Dictated by: Jamey Steel M.D. on 10/11/2024 at 14:01 Approved by: Jamey Steel M.D. on 10/11/2024 at 14:07
--- NOTE | 2024-10-11 13:47 | ED_ITS ---
<Statement entered by Shawn Garner, - 10/11/24 15:19> Dr. Garner: I was immediately available in the department for consultation. I did not actually see the patient. HPI - Abdominal Pain General Chief Complaint: Abdominal Pain Stated Complaint: rt side abd px Time Seen by Provider: 10/11/24 13:39 History of Present Illness HPI narrative: 54-year-old male with past medical history hyperlipidemia, optic neuritis, plantar fasciitis, lumbosacral radiculopathy, anxiety presents to the ED with 1 day of right lower quadrant pain. Patient states he was sitting on the couch, when he had sudden onset of right lower quadrant pain. No nausea, vomiting, diarrhea. Last bowel movement was this morning and was normal. No fever, chills. No history of kidney stones. No prior abdominal surgeries. No chest pain, shortness of breath. Related Data Previous Rx's Medication Instructions Recorded Parking Permit... #1 ea 10/25/21 psyllium husk (with sugar) 3.4 1 tbsp PO DAILY #822 grams 12/06/22 gram/7 gram oral powder (Fiber (psyllium husk-sugar)) tramadol 50 mg tablet 50 mg PO BID PRN pain #42 tabs 06/07/24 celecoxib 200 mg capsule (Celebrex) 200 mg PO DAILY #30 caps 10/06/24 gabapentin 300 mg capsule 300 mg PO .COMPLEX #90 caps 10/06/24 Allergies Allergy/AdvReac Type Severity Reaction Status Date / Time No Known Drug Allergies Allergy Unverified 10/06/24 10:09 Review of Systems Constitutional Constitutional: Denies chills, Denies fatigue, Denies fever(s), Denies frequent falls, Denies lethargy and Denies weakness Eyes Eyes: Denies change in vision, Denies eye discharge, Denies irritation and Denies loss of vision ENT Ears, Nose, Mouth, and Throat: Denies change in voice, Denies dizziness, Denies neck pain, Denies sore throat and Denies throat swelling Cardiovascular Cardiovascular: Denies chest pain, Denies irregular heart rhythm, Denies lightheadedness, Denies palpitations, Denies dyspnea, Denies dyspnea on exertion and Denies orthopnea Respiratory Respiratory: Denies cough, Denies dyspnea, Denies dyspnea on exertion and Denies wheezing Gastrointestinal Gastrointestinal: Reports abdominal pain, Denies change in bowel habits, Denies diarrhea, Denies nausea and Denies vomiting Musculoskeletal Musculoskeletal: Denies neck pain and Denies numbness Integumentary/Breasts Skin/Breast: Denies pruritus, Denies erythema, Denies rash and Denies wounds Neurologic Neurologic: Denies behavioral changes, Denies confusion, Denies dizziness, Denies frequent falls, Denies loss of vision, Denies numbness and Denies weakness Psychiatric Psychiatric: Denies anxiety, Denies behavioral changes, Denies confusion, Denies depression, Denies homicidal ideation and Denies suicidal ideation Endocrine Endocrine: Denies fatigue, Denies flushing and Denies palpitations Hematologic/Lymphatic Hematologic/Lymphatic: Denies easy bruising Allergic/Immunologic Allergic/Immunologic: Denies urticaria, Denies throat swelling and Denies wheezing Patient History Medical History Lumbosacral radiculopathy at L5 Anxiety Posttraumatic stress disorder Facet arthropathy, lumbar Dyslipidemia Degenerative disc disease at L5-S1 level Optic neuritis Heel spur Bilateral plantar fasciitis Social History household members: spouse Smoking Status: Never smoker Smoking Status: Never smoker alcohol intake frequency: a few times a week Exam Narrative Exam Narrative: Const General:?cooperative, healthy appearing and comfortable [facility] Head:?normal to inspection Ears:?hearing grossly normal bilaterally Nose:?external nose normal Face and sinus:?normal facial exam and sinuses nontender Mouth:?oral mucosae normal Throat:?posterior oropharynx normal Eyes General:?appearance normal, both eyes and all related structures Neck Neck:?normal visual inspection and no lymphadenopathy noted Resp Effort & Inspection:?normal respiratory effort Auscultation:?clear to auscultation bilaterally Cardio Rate:?regular rate Rhythm:?regular rhythm GI Abdomen is soft, nondistended, exquisitely tender to palpation in the right lower quadrant. No CVA tenderness. Neuro General:?patient alert, patient awake and patient oriented x3 Initial Vital Signs Initial Vital Signs: Vital Signs Temperature 97.5 F L 10/11/24 12:23 Pulse Rate 97 H 10/11/24 12:23 Respiratory Rate 18 10/11/24 12:23 Blood Pressure 197/90 H 10/11/24 12:23 Pulse Oximetry 96 02/17/25 12:23 Oxygen Delivery Method Room Air 10/11/24 12:23 Course Orders Ordered: ED Orders 10/11/24 12:30 Complete Blood Count AUTO DIFF Stat Comprehensive Metabolic Panel Stat Lipase Stat 10/11/24 12:34 EKG-12 Lead Stat 10/11/24 13:46 CT abdomen pelvis w con Stat 10/11/24 14:25 Urinalysis and Microscopic Stat Ondansetron HCl (Ondansetron 4 Mg/2 Ml Inj) 4 mg IV NOW PRN PRN Reason: Nausea And Vomiting Ondansetron HCl (Ondansetron 4 Mg Odt) 4 mg PO NOW PRN PRN Reason: Nausea And Vomiting Discontinued Medications Sodium Chloride (Normal Saline 0.9%) 1,000 mls @ 1,000 mls/hr IV BOLUS ONE Stop: 10/11/24 14:45 Last Infusion: 10/11/24 15:01 Dose: Infused Documented By: Admin: 10/11/24 14:02 Dose: 1,000 mls/hr Documented By: ALYSON Ketorolac Tromethamine (Ketorolac 30 Mg/Ml Vial) 15 mg IV NOW ONE Stop: 10/11/24 13:45 Last Admin: 10/11/24 14:02 Dose: 15 mg Documented By: ALYSON Vital Signs Vital signs: Vital Signs - 8 hr 10/11/24 12:23 Temperature 97.5 F L Pulse Rate 97 H Respiratory Rate 18 Blood Pressure 197/90 H Pulse Oximetry 96 Oxygen Delivery Method Room Air MDM - Abdominal Pain Lab Data 10/11/24 12:30 10/11/24 12:30 Labs: Lab Results 10/11/24 10/11/24 Range/Units 12:30 14:25 WBC 4.6 (4.5-11.0) X10^3/uL RBC 4.80 (4.5-5.9) X10^6/uL Hgb 15.5 (13.5-17.5) g/dL Hct 44.6 (41-53) % MCV 92.9 (80-100) fL MCH 32.2 (26-34) PG MCHC 34.7 (30-36) % RDW 13.0 (11.6-14.8) % Plt Count 285 (150-400) X10^3/uL Neut % (Auto) 45.9 L (50-75) % Lymph % (Auto) 34.3 (25-40) % [place] % (Auto) 15.3 H (3-14) % Eos % (Auto) 2.3 (2-4) % Baso % (Auto) 2.2 H (0-2) % Neut # (Auto) 2100 (7652-6470) /uL Lymph # (Auto) 1600 (8676-7490) /uL [place] # (Auto) 700 (0-900) /uL Eos # (Auto) 100 (0-450) /uL Baso # (Auto) 100 (0-100) /uL Sodium 138 (137-145) mmol/L Potassium 4.5 (3.4-5.1) mmol/L Chloride 102 (98-107) mmol/L Carbon Dioxide 25 (22-32) mmol/L BUN 17 (9-20) mg/dL Creatinine 1.26 H (0.66-1.25) mg/dL Estimated GFR > 60 (>60) mL/min BUN/Creatinine Ratio 13.5 (6-22) Glucose 90 (70-100) mg/dL Calcium 9.5 (8.4-10.2) mg/dL Total Bilirubin 0.6 (0.2-1.3) mg/dL AST 90 H (17-59) IU/L ALT 66 H (<50) IU/L Alkaline Phosphatase 50 (38-126) U/L Total Protein 8.2 (6.3-8.2) g/dL Albumin 4.8 (3.5-5.0) g/dL Globulin 3.4 (1.7-4.1) g/dL Albumin/Globulin Ratio 1.4 (1.0-2.8) Lipase 187 (23-300) U/L Urine Color Yellow Urine Appearance Clear Urine pH 6.0 (4.5-8.0) Ur Specific [place] 1.020 (1.000-1.035) Urine Protein Negative (Negative) Urine Glucose (UA) Negative (Negative) g/dL Urine Ketones Negative (NEGATIVE) Urine Occult Blood Trace-intact (Negative) Urine Nitrate Negative (Negative) Urine Bilirubin Negative (NEGATIVE) Urine Urobilinogen 0.2 (0.2) E.U./dL Ur Leukocyte Esterase Negative (NEGATIVE) Urine RBC 0-1/hpf (0-5/HPF) Urine WBC 0-1/hpf (0-5/HPF) Ur Squamous Epith Cells 0-1 /hpf (0-5/HPF) Urine Bacteria Occasional (0-1) (None) Ur Culture Indicated? Cult not indicated Vol Urine Centrifuged 10ml (spun) Point of care testing: Urine Dip Bedside Urine Glucose Negative Bedside Urine Bilirubin - Negative Bedside Urine Ketone - Negative Urine Specific [place] 1.025 Bedside Urine Occult Blood +/- Bedside Urine pH 6.0 Bedside Urine Protein - Negative Bedside Urine Urobilinogen - Negative Bedside Urine Nitrite - Negative Bedside Urine Leukocytes - Negative Esterase MDM Narrative Medical decision making narrative: 54-year-old male with past medical history hyperlipidemia, optic neuritis, plantar fasciitis, lumbosacral radiculopathy, anxiety presents to the ED with 1 day of right lower quadrant pain. Concern for appendicitis versus nephrolithiasis versus other intra-abdominal pathology versus musculoskeletal sprain/strain versus other. Will obtain labs, UA, CT abdomen pelvis. Will give IV fluids, ketorolac. Will reassess. Labs show gradual rise in creatinine over the last 1-2 years. Today's creatinine was 1.26. There is also some mild, nonspecific elevation of transaminases. Labs otherwise within normal limits. Urine without UTI. CT scan shows appendix was not visualized. No secondary signs of acute appendicitis. No acute abdominal process is identified. There is prostatomegaly with possible degree of bladder outlet obstruction. Discussed findings with patient. Recommend follow-up with PCP regarding kidney function. Abdominal pain most consistent with a musculoskeletal etiology versus other. Recommend monitoring abdominal pain, returning to the ED if worsening symptoms. ED return precautions discussed with patient. Patient verbalized understanding. Medical records reviewed: Yes Discharge Plan Departure Patient Disposition: Home Clinical Impression: Abdominal pain Qualifiers: Abdominal location: right lower quadrant Qualified Code(s): R10.31 - Right lower quadrant pain Instructions: DI for Abdominal Pain-Adult Activity Restrictions/Additional Instructions: You were evaluated in the ED today for abdominal pain. Your CT scan did not show any abnormalities. Your creatinine was somewhat elevated today, and it appears that your creatinine is climbing over the last 2 years. It is advised for you to follow-up with your PCP as soon as possible for further evaluation. Your abdominal pain could be due to either a musculoskeletal sprain/strain versus a developing abdominal issue. Please monitor your symptoms and return to the ED if you have worsening symptoms. Prescriptions: No Action (DME) Parking Permit... See Rx Instructions .Route .MEDSUPPLY Qty: 1 0RF Rx Instructions: I find this patient to be medically disabled qualified for disabled parking as indicated, and signed, on the accompanying disabled parking application for individuals. Fiber (psyllium husk-sugar) 3.4 gram/7 gram powder 1 tbsp PO DAILY Qty: 822 0RF tramadol 50 mg tablet 50 mg PO BID PRN (Reason: pain) Qty: 42 1RF celecoxib [Celebrex] 200 mg capsule 200 mg PO DAILY Qty: 30 2RF gabapentin 300 mg capsule 300 mg PO .COMPLEX Qty: 90 2RF Rx Instructions: 1-2 PO Tid to begin at HS and titrate to pain relief Referrals: Clemente Burr MD [Primary Care Provider] - Stand Alone Forms: Patient Portal/API/Survey
[2024-10-11] MEDS: SODIUM CHLORIDE 0.9% 1,000 ML 1000 ML IV (14:02)
[2024-10-11] MEDS: KETOROLAC 30 MG/ML VIAL 15 MG IV (14:02)
[2024-10-11 15:01] LABS: Appearance Urine UA CLEAR; Bilirubin Urine UA NEGATIVE (NEGATIVE); Color Urine UA YELLOW; Glucose Urine UA NEGATIVE (Negative); Ketones Urine UA NEGATIVE (NEGATIVE); Leukocyte Esterase Urine UA NEGATIVE (NEGATIVE); Nitrite Urine UA NEGATIVE (Negative); Occult Blood Urine UA TRACE-INTACT (Negative); Protein Urine UA NEGATIVE (Negative); Urobilinogen Urine UA 0.2 E.U./dL (0.2)
[2024-10-11 15:08] LABS: Bacteria Urine Occasional (0-1); Culture Indicated Urine Cult Not Indicated; RBC Urine 0-1/HPF (0-5/HPF); Squamous Epithelial Cell Urine 0-1 /HPF (0-5/HPF); Urine Volume 10mL (spun); WBC Urine 0-1/HPF (0-5/HPF)
== END 2024-10-11 15:13 | disposition home or self-care (01) ==
PROVIDERS: Student in an Organized Health Care Education/Training Program; Emergency Provider Student in an Organized Health Care Education/Training Program; PCP Family Medicine
DX: R10.31 Right lower quadrant pain (principal)
CPT/HCPCS: 36415; 74177; 80053; 81001; 81003; 83690; 85025; 93005; 96361; 96374; 99284; J1885; Q9967

== ENCOUNTER → 2024-11-11 08:10 | Outpatient (CLI) | payer OTHER, SELFPAY ==
[2024-11-11 09:24] LABS: Alanine Aminotransferase 59 IU/L (<50); Albumin 4.6 g/dL (3.5-5.0); Albumin Globulin Ratio 1.5 (1.0-2.8); Alkaline Phosphatase 43 U/L (38-126); Aspartate Aminotransferase 78 IU/L (17-59); BUN Creatinine Ratio 13.1 (6-22); Bilirubin Total 0.6 mg/dL (0.2-1.3); Blood Urea Nitrogen 20 mg/dL (9-20); Calcium 9.9 mg/dL (8.4-10.2); Carbon Dioxide 28 mmol/L (22-32); Chloride 101 mmol/L (98-107); Estimated Glomerular Filt Rate 54 mL/min (>60); Glucose 94 mg/dL (70-100); HEMOLYSIS < 15 (0-50); Sodium 138 mmol/L (137-145); Total Protein 7.6 g/dL (6.3-8.2)
== END ==
PROVIDERS: PCP Family Medicine; Referring Provider Family Medicine; Visit Provider Family Medicine
DX: R74.8 Abnormal levels of other serum enzymes (principal); R10.31 Right lower quadrant pain
CPT/HCPCS: 36415; 80053

== ENCOUNTER → 2024-11-22 09:56 | Outpatient (CLI) | payer OTHER, SELFPAY ==
[2024-11-22 11:02] LABS: HEMOLYSIS < 15 (0-50); Iron 85 ug/dL (49-181)
[2024-11-22 11:03] LABS: Alanine Aminotransferase 50 IU/L (<50); Albumin 4.5 g/dL (3.5-5.0); Albumin Globulin Ratio 1.6 (1.0-2.8); Alkaline Phosphatase 49 U/L (38-126); Aspartate Aminotransferase 62 IU/L (17-59); BUN Creatinine Ratio 13.6 (6-22); Bilirubin Total 0.7 mg/dL (0.2-1.3); Blood Urea Nitrogen 16 mg/dL (9-20); Calcium 9.5 mg/dL (8.4-10.2); Carbon Dioxide 27 mmol/L (22-32); Chloride 102 mmol/L (98-107); Estimated Glomerular Filt Rate > 60 mL/min (>60); Globulin 2.9 g/dL (1.7-4.1); Glucose 96 mg/dL (70-100); HEMOLYSIS < 15 (0-50); Potassium 4.6 mmol/L (3.4-5.1); Sodium 138 mmol/L (137-145); Total Protein 7.4 g/dL (6.3-8.2)
[2024-11-22 11:14] LABS: Percent Iron Saturation 30 % (20-50); Total Iron Binding Capacity 280 ug/dL (261-462); Transferrin 213 mg/dL (206-381)
[2024-11-22 11:35] LABS: Prostate Specific Antigen 2.61 ng/mL (0.10-4.00)
[2024-11-22 11:36] LABS: TSH w/ Reflex to FT4 1.15 uIU/mL (0.47-4.68)
[2024-11-23 05:09] LABS: Hepatitis B Surf Ab Qualitativ Non Reactive (.)
[2024-11-23 12:15] LABS: Hepatitis B Surface Antigen NEGATIVE s/c (NEGATIVE)
[2024-11-23 12:35] LABS: Hep C Virus Ab w/Reflex Quant NEGATIVE s/c (NEGATIVE)
== END ==
PROVIDERS: PCP Family Medicine; Referring Provider Family Medicine; Visit Provider Family Medicine
DX: R74.8 Abnormal levels of other serum enzymes (principal); N40.0 Benign prostatic hyperplasia without lower urinary tract symptoms; R79.89 Other specified abnormal findings of blood chemistry
CPT/HCPCS: 36415; 80053; 83540; 83550; 84153; 84443; 86015; 86038; 86706; 86803; 87340